=== PATIENT | female | born 1935 | race Caucasian/White ===

== ENCOUNTER 2018-11-28 12:29 | Outpatient (CLI) | payer MEDICARE, OTHER ==
--- NOTE | 2018-11-28 15:09 | MRI ---
MRI LUMBAR SPINE WITHOUT CONTRAST: 11/28/2018 HISTORY: Weakness and radiculopathy with back pain. COMPARISON: None. TECHNIQUE: Multiplanar, multisequence MR imaging of the lumbar spine provided without contrast. FINDINGS: Sagittal STIR imaging demonstrates no focal area of osseous marrow edema. Assuming five lumbar type vertebral bodies, the conus medullaris terminates at the L1-L2 level. There is anterolisthesis of L4-L5, measuring 5 mm. There is a remote mild superior endplate fracture of T12. T12-L1: Mild disk space narrowing and disk desiccation with no significant central canal or neural f oraminal stenosis. L1-L2: Disk space narrowing and disk desiccation noted. No significant central canal or neural fora lisandro stenosis. L2-L3: Mild bilateral facet hypertrophy. Disk space narrowing and disk desiccation. No significant central canal or neural foraminal stenosis. L3-L4: Small foraminal disk protrusion on the left. No significant central canal or neural foramina l stenosis. L4-L5: There is a foraminal and post foraminal disk protrusion on the right. There is bilateral fac et hypertrophy with a mild degree of central canal stenosis. There is moderate right neural foramina l stenosis. No significant left neural foraminal stenosis. L5-S1: There is disk space narrowing, disk desiccation, disk bulge, and anterior osteophyte formatio n. No significant central canal stenosis. There is mild bilateral facet hypertrophy. There is mild right and moderate left neural foraminal stenosis. The imaged retroperitoneal structures demonstrate T2 hyperintensities within the left kidney suggesti ng small cysts. No acute retroperitoneal abnormality. IMPRESSION: Degenerative changes of the lumbar spine, as detailed above. POS: [facility]
== END 2018-11-28 12:30 | disposition home or self-care (01) ==
LOC: SCSMRI 12:29
PROVIDERS: ATTEND Physical Medicine & Rehabilitation
DX: R29.898 Other symptoms and signs involving the musculoskeletal system (principal); M47.816 Spondylosis without myelopathy or radiculopathy, lumbar region
CPT/HCPCS: 72148

== ENCOUNTER 2019-04-11 12:01 | Outpatient (CLI) | payer MEDICARE, OTHER ==
--- NOTE | 2019-04-11 13:46 | MRI ---
THORACIC SPINE MRI WITHOUT CONTRAST: Date: 04-11-19 COMPARISON: None HISTORY: T5 compression fracture FINDINGS: There is minimal anterolisthesis at T2-3 and T3-4. There is disc desiccation and disc space narrowing at all levels within the thoracic spine, most prom inent at T6-7 through T10-11. The sagittal STIR imaging demonstrates no focal area of osseous marrow edema. There is no evidence fo r acute fracture. The T5 vertebral body demonstrates normal height. No evidence for a T5 fracture is seen. There is minimal anterior wedging of T8 which may represent a remote fracture. No obvious abnormal signal intensity identified within the thoracic cord. Portions of the thoracic co rd are not well evaluated however, secondary to motion artifact. There is a prominent incompletely imaged hiatal hernia. Areas of T2 hyperintensity within the left kidney noted suggesting cysts. There is no evidence for significant central canal stenosis at any level within the thoracic spine. There is mild bilateral neural foraminal stenosis at T2-3 and T3-4. No abnormal marrow signal intensity is noted. Minimal disc bulge noted at T8-9, T9-10, and T10-11. IMPRESSION: No MR evidence for acute fracture. T5 vertebral body appears unremarkable. Transcribed Date/Time: 04/11/2019 2:56 PM
== END 2019-04-11 12:02 | disposition home or self-care (01) ==
LOC: SCSMRI 12:01
PROVIDERS: ATTEND Anesthesiology Pain Medicine
DX: S22.059A Unspecified fracture of T5-T6 vertebra, initial encounter for closed fracture (principal)
CPT/HCPCS: 72146